=== PATIENT | male | born 1950 | race Caucasian/White ===

== ENCOUNTER → 2017-09-28 | Outpatient (CLI) | payer MEDICARE ==
[~2017-09-28] MED LIST: FUROSEMIDE INJ 10 MG/ML 4 ML VIAL ONE
--- NOTE | 2017-09-28 19:48 | Diagnostic Imaging Report ---
Renal Scan with Lasix Washout Clinical information: 67 M with hydronephrosis; history of bladder cancer 2016 Technique: Following intravenous administration of 11 mCi of Tc-99m MAG3, dynamic images of the kidneys in the posterior projection were obtained through 40 minutes. Lasix 40 mg was administered intravenously at 10 minutes post injection of the tracer. Report: Left kidney: Perfusion of the left kidney is prompt. The kidney has a normal reniform shape with very mild thinning of the renal cortex. The renal contour is smooth. Extraction of tracer from the blood pool is normal. Clearance of tracer from the renal parenchyma is prompt. The pelvicalyceal system is mildly dilated, most prominently the renal pelvis. Increased pooling of tracer is seen within the pelvicalyceal system. No net drainage of tracer from the pelvicalyceal system is seen prior to administration of Lasix. Washout of tracer from the pelvicalyceal system following administration of Lasix is rapid with a T-1/2 of 4 minutes (normal less than 15 minutes). No significant stasis of tracer is seen within the left ureter. Right kidney: Perfusion of the right kidney is prompt. The kidney has a normal reniform shape with very mild thinning of the renal cortex. The renal contour is smooth. Extraction of tracer from the blood pool is normal. Clearance of tracer from the renal parenchyma is prompt. The pelvicalyceal system is mildly dilated, most prominently the renal pelvis. Increased pooling of tracer is seen within the pelvicalyceal system. No net drainage of tracer from the pelvicalyceal system is seen prior to administration of Lasix. Washout of tracer from the pelvicalyceal system following administration of Lasix is rapid with a T-1/2 of 4 minutes (normal less than 15 minutes). No significant stasis of tracer is seen within the right ureter. Differential renal function: The left kidney contributes 50% of total renal function and the right kidney contributes 50% (normal 43-57%). Impression: 1. The function of the left kidney is generally normal. Mild hydronephrosis is present. No physiologically significant obstruction of the renal collecting system is present. 2. The function of the right kidney is generally normal. Mild hydronephrosis is present. No physiologically significant obstruction of the renal collecting system is present. 3. The differential renal function is preserved. Signed by: Dr. Kristy Petersen M.D. on 09/28/2017 7:45 PM
== END ==
LOC: NM 13:11
PROVIDERS: ATTEND Urology
DX: N13.1 Hydronephrosis with ureteral stricture, not elsewhere classified (principal); R31.0 Gross hematuria
CPT/HCPCS: 78708; A9562; J1940

== ENCOUNTER → 2017-12-02 | Day surgery (SDC) | payer MEDICARE ==
[2017-11-30 13:12] LABS: BASOPHILS % 0.4 % (0.0-1.0); EOSINOPHILS # (AUTO) 0.2 (0.0-0.4); EOSINOPHILS % 2.2 % (0.0-6.0); HEMATOCRIT 44.9 % (38.2-49.6); HEMOGLOBIN 15.1 g/dL (14.0-18.0); LYMPHOCYTES # (AUTO) 1.6 (1.0-3.2); LYMPHOCYTES % 22.9 % (18.0-39.1); MEAN CORPUSCULAR HEMOGLOBIN 31.1 pg (28-32); MEAN CORPUSCULAR HGB CONC 33.6 g/dL (31-35); MEAN CORPUSCULAR VOLUME 92.6 fL (81-99); MONOCYTES # (AUTO) 0.6 (0.2-0.8); MONOCYTES % 9.2 % (4.4-11.3); NEUTROPHILS # (AUTO) 4.4 (2.1-6.9); PLATELET COUNT 187 x10e3/uL (140-360); RED BLOOD COUNT 4.85 x10e6/uL (4.3-5.7); RED CELL DISTRIBUTION WIDTH 12.5 % (11.7-14.4)
--- NOTE | 2017-11-30 14:15 | Diagnostic Imaging Report ---
EXAMINATION: PA and lateral views of the chest. COMPARISON: None CLINICAL HISTORY: Preoperative study, ureteral cancer DISCUSSION: The lungs are well-inflated. No focal airspace consolidation, pleural effusion, or pneumothorax. Tortuosity of the thoracic aorta. Otherwise normal cardiomediastinal contour. No pulmonary edema. No acute osseous abnormality. IMPRESSION: No acute cardiopulmonary abnormalities. Signed by: Dr. Uriel Lainez M.D. on 11/30/2017 2:10 PM
[~2017-12-02] MED LIST changes: +ASPIR 8181 MG PO; +ATORVASTATIN CA20 MG PO; +CEFTRIAXONE SOD 1 GM VIAL ONE; +CO Q-10100 MG PO; +DEXAMETHASONE SOD PHOS INJ 4 MG/ML VIAL ONE; +FENTANYL CITRATE/PF 100MCG/2 ML INJ ONE; -FUROSEMIDE INJ 10 MG/ML 4 ML VIAL ONE; +GLYCOPYRROLATE INJ 1MG/ 5 ML SYR ONE; +IOPAMIDOL 300MG/ML 50ML INFUS..BTL IV ONE; +LIPITOR20 MG PO; +LISINOPRIL2.5 MG PO; +MIDAZOLAM HCL 2 MG/2 ML VIAL ONE; +ONDANSETRON HCL INJ 2 MG/ML VIAL ONE; +PROPOFOL IV EMULSION 10 MG/ML 20 ML VIAL ONE; +SEVOFLURANE INHAL SOLN 250 ML PEN BTL ONE; +VIT D3 PO
[2017-12-02 09:25] VITALS: BP 125/73
--- OUTSIDE RECORDS SUMMARY | 2017-12-27 05:29 | XMS REPORT ---
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 Allergies, Adverse Reactions, Alerts This patient has no known allergies or adverse reactions. Medications This patient has no known medications. Results Test Description Test Time Test Comments Text Results Atomic Results Result Comments CHEST 2 VIEWS 2017-11-30 14:08:00 [place] [address] Patient Name: EDWIGE AN MR #: [id number] : 1950 Age/Sex: 67/M Req #: [id number] Adm Physician: Ordered by: RANJAN REYNOLDS MD Report #: [id number] Location: OR Room/Bed: Procedure: [id number] DX/CHEST 2 VIEWS Exam Date: 11/30/17 Exam Time: 1313 REPORT STATUS: Signed EXAMINATION: PA and lateral views of the chest. COMPARISON: None CLINICAL HISTORY: Preoperative study, ureteral cancer DISCUSSION: The lungs are well-inflated. No focal airspace consolidation, pleural effusion, or pneumothorax. Tortuosity of the thoracic aorta. Otherwise normal cardiomediastinal contour. No pulmonary edema. No acute osseous abnormality. IMPRESSION: No acute cardiopulmonary abnormalities. Signed by: Dr. Sheila Cintron M.D. on 11/30/2017 2:10 PM Dictated By: SHEILA CINTRON MD 141 Transcribed By: PANKAJ on 11/30/17 141 COPY TO: RANJAN REYNOLDS MD RENAL SCAN W/LASIX 2017-09-28 19:39:00 [place] [address] Patient Name: EDWIGE AN MR #: [id number] : 1950 Age/Sex: 67/M Req #: [id number] Adm Physician: Ordered by: RANJAN REYNOLDS MD Report #: [id number] Location: [place] Room/Bed: Procedure: [id number] NM/RENAL SCAN W/LASIX Exam Date: 09/28/17 Exam Time: 1408 REPORT STATUS: Signed Renal Scan with Lasix Washout Clinical information: 67 M with hydronephrosis; history of bladder cancer 2015 Technique: Following intravenous administration of 11 mCi of Tc-99m MAG3, dynamic images of the kidneys in the posterior projection were obtained through 40 minutes. Lasix 40 mg was administered intravenously at 10 minutes post injection of the tracer. Report: Left kidney: Perfusion of the left kidney is prompt. The kidney has a normal reniform shape with very mild thinning of the renal cortex. The renal contour is smooth. Extraction of tracer from the blood pool is normal. Clearance of tracer from the renal parenchyma is prompt. The pelvicalyceal system is mildly dilated, most prominently the renal pelvis. Increased pooling of tracer is seen within the pelvicalyceal system. No net drainage of tracer from the pelvicalyceal system is seen prior to administration of Lasix. Washout of tracer from the pelvicalyceal system following administration of Lasix is rapid with a T-1/2 of 4 minutes (normal less than 15 minutes). No significant stasis of tracer is seen within the left ureter. Right kidney: Perfusion of the right kidney is prompt. The kidney has a normal reniform shape with very mild thinning of the renal cortex. The renal contour is smooth. Extraction of tracer from the blood pool is normal. Clearance of tracer from the renal parenchyma is prompt. The pel vicalyceal system is mildly dilated, most prominently the renal pelvis. Increased pooling of tracer is seen within the pelvicalyceal system. No net drainage of tracer from the pelvicalyceal system is seen prior to administration of Lasix. Washout of tracer from the pelvicalyceal system following administration of Lasix is rapid with a T-1/2 of 4 minutes (normal less than 15 minutes). No significant stasis of tracer is seen within the right ureter. Differential renal function: The left kidney contributes 50% of total renal function and the right kidney contributes 50% (normal 43- 57%). Impression: 1. The function of the left kidney is generally normal. Mild hydronephrosis is present. No physiologically significant obstruction of the renal collecting system is present. 2. The function of the right kidney is generally normal. Mild hydronephrosis is present. No physiologically significant obstruction of the renal collecting system is present. 3. The differential renal function is preserved. Signed by: Dr. Yanni Peteresn M.D. on 09/28/2017 7:45 PM Dictated By: YANNI PETERSEN MD 44 Transcribed By: PANKAJ on 09/28/171944 COPY TO: RANJAN REYNOLDS MD
--- NOTE | 2018-01-24 01:22 | Operative Report ---
DATE OF PROCEDURE: December 02, 2017 PREOPERATIVE DIAGNOSIS: Ureteral cancer. POSTOPERATIVE DIAGNOSIS: Ureteral cancer. OPERATIONS PERFORMED 1. Cystourethroscopy with bilateral ureteral catheterization and retrograde ureteropyelography. 2. Interpretation of retrograde ureteropyelography. 3. Supervision of fluoroscopy. No radiologist present. ANESTHESIA: General. COMPLICATION: None. CLINICAL SUMMARY: Mik Olguin is a 67-year-old man, who had gross hematuria, who was diagnosed as having ureteral cancer. He underwent distal ureterectomy and is brought for surveillance. He is aware of the risks of bleeding, infection, injury to adjacent structures, need for additional procedures and elected to proceed. OPERATIVE PROCEDURE IN DETAIL: Informed consent was verified. Mik Olguin was properly identified, taken to operating room, placed on the cystoscopy table in supine position. Anesthesia was uneventfully begun. The patient was then carefully and gently repositioned in dorsal lithotomy position with all pressure points well padded. His genitalia were prepared and draped in usual sterile fashion. The 22.5-Comoran cystoscope sheath with visual obturator in place was atraumatically inserted in the patient's urethra. It was guided down the unremarkable urethra past a normal sphincteric region through the prostate bed, which was significant for a bilobar prostatic hypertrophy with kissing lateral lobes and visual obstruction. We entered the patient's bladder, which exhibited grade-1 trabeculations, normally positioned left ureteral orifice was identified. The right ureter was located in a diverticular-like section at the anterolateral portion of the bladder, where we identified the ureteral orifice. An 8-Comoran catheter was used cannulate each ureter and retrograde ureteropyelographies were performed. Interpretation retrograde ureteropyelography: Contrast was instilled in retrograde fashion bilaterally. There were no tumors, no stones, no diverticula. Unobstructed drainage was observed bilaterally fluoroscopically. There were no suspicious lesions. The patient's bladder was then drained. The patient was uneventfully reversed from anesthesia and taken to recovery room in stable condition. There were no complications to procedure. He tolerated the procedure well. Explicit postop instructions were given. Will plan on returning the patient to the office in approximately 5 months to perform uroflowmetry, bladder ultrasonography, and cystoscopy. Job#: [id number] CQ
== END | disposition home or self-care (01) ==
LOC: OR 05:07
PROVIDERS: ATTEND Urology
DX: C66.9 Malignant neoplasm of unspecified ureter (principal); N40.1 Benign prostatic hyperplasia with lower urinary tract symptoms; N13.8 Other obstructive and reflux uropathy; N32.89 Other specified disorders of bladder; G47.33 Obstructive sleep apnea (adult) (pediatric); I10 Essential (primary) hypertension; E78.5 Hyperlipidemia, unspecified; F17.210 Nicotine dependence, cigarettes, uncomplicated; Z01.810 Encounter for preprocedural cardiovascular examination; Z01.812 Encounter for preprocedural laboratory examination; Z01.818 Encounter for other preprocedural examination; Z79.82 Long term (current) use of aspirin
CPT/HCPCS: 36415; 52005; 71046; 74420; 85025; 93005; C1758; J0696; J1100; J2250; J2405; J3490; Q9967

== ENCOUNTER → 2019-02-16 | Outpatient (CLI) | payer MEDICARE ==
[~2019-02-16] MED LIST changes: -CEFTRIAXONE SOD 1 GM VIAL ONE; -DEXAMETHASONE SOD PHOS INJ 4 MG/ML VIAL ONE; -FENTANYL CITRATE/PF 100MCG/2 ML INJ ONE; -GLYCOPYRROLATE INJ 1MG/ 5 ML SYR ONE; -IOPAMIDOL 300MG/ML 50ML INFUS..BTL IV ONE; -MIDAZOLAM HCL 2 MG/2 ML VIAL ONE; -ONDANSETRON HCL INJ 2 MG/ML VIAL ONE; -PROPOFOL IV EMULSION 10 MG/ML 20 ML VIAL ONE; -SEVOFLURANE INHAL SOLN 250 ML PEN BTL ONE
--- NOTE | 2019-02-16 08:27 | Diagnostic Imaging Report ---
Ultrasound of the Kidneys, 02/16/2019. Clinical History: Hydronephrosis, malignant neoplasm of right ureter. Discussion: Sonographic evaluation of the kidneys is performed. Right kidney: 12.9 cm in length, normal in size, with cortical thickness of 1.5 cm. Normal cortical echogenicity. A 2.1 x 2.0 x 2.4 cm anechoic cyst arises from the upper pole of the right kidney.. No shadowing calculus. No hydronephrosis. Left kidney: 11.9 cm in length, normal in size, with cortical thickness of 1.9 cm. Normal cortical echogenicity. No mass. No shadowing calculus. No hydronephrosis. Limited Doppler evaluation demonstrates normal color Doppler flow within bilateral renal mandi. Fluid: No perinephric fluid. Bladder: Bilateral ureteral jets are visualized.. IMPRESSION: No evidence of hydronephrosis bilaterally. Right renal cyst. Signed by: Rogelio Sage MD on 02/16/2019 8:24 AM
== END ==
LOC: US 06:33
PROVIDERS: ATTEND Urology
DX: C66.1 Malignant neoplasm of right ureter (principal); N13.30 Unspecified hydronephrosis
CPT/HCPCS: 76770

== ENCOUNTER → 2020-02-13 | Day surgery (SDC) | payer MEDICARE ==
[2020-02-11 09:52] LABS: BASOPHILS % 0.6 % (0.0-1.0); EOSINOPHILS # (AUTO) 0.2 (0.0-0.4); HEMATOCRIT 42.9 % (38.2-49.6); HEMOGLOBIN 14.1 g/dL (14.0-18.0); LYMPHOCYTES # (AUTO) 1.3 (1.0-3.2); LYMPHOCYTES % 20.3 % (18.0-39.1); MEAN CORPUSCULAR HGB CONC 32.9 g/dL (31-35); MEAN CORPUSCULAR VOLUME 91.3 fL (81-99); MONOCYTES # (AUTO) 0.4 (0.2-0.8); MONOCYTES % 6.7 % (4.4-11.3); NEUTROPHILS # (AUTO) 4.5 (2.1-6.9); NEUTROPHILS % 69.2 % (38.7-80.0); PLATELET COUNT 195 x10e3/uL (140-360)
[2020-02-11 10:19] LABS: ALANINE AMINOTRANSFERASE 18 IU/L (0-55); ALBUMIN 4.1 g/dL (3.5-5.0); ALBUMIN/GLOBULIN RATIO 1.6 (0.8-2.0); ALKALINE PHOSPHATASE 73 IU/L (40-150); BLOOD UREA NITROGEN 12 mg/dL (7-26); BUN/CREATININE RATIO 13 (6-25); CALCIUM 8.6 mg/dL (8.4-10.2); CARBON DIOXIDE 26 mmol/L (22-29); CHLORIDE 107 mmol/L (98-107); CREATININE, SERUM 0.91 mg/dL (0.72-1.25); EST GLOMERULAR FILTRATION RATE > 60 ML/MIN (60-); GLUCOSE 102 mg/dL (74-118); SODIUM 140 mmol/L (136-145)
--- NOTE | 2020-02-11 10:53 | Diagnostic Imaging Report ---
EXAMINATION: CHEST 2 VIEWS INDICATION: Pre-operative COMPARISON: Chest radiograph 11/30/2017 FINDINGS: LINES/TUBES:None LUNGS:The lungs are well-inflated. No focal consolidation or pulmonary edema. PLEURA:No pleural effusion or pneumothorax. MEDIASTINUM:The cardiomediastinal silhouette appears normal in size and shape. BONES/SOFT TISSUES:No acute osseous injury. ABDOMEN:No free air under the diaphragm. IMPRESSION: No focal pneumonia or pulmonary edema. Signed by: Mimi Cornell MD on 02/11/2020 10:50 AM
[~2020-02-13] MED LIST changes: +B&O 60MG R/S 60 MG SUPP PR ONE; +BENAZEPRIL HCL10 MG PO; +CEFTRIAXONE SOD 1 GM/NS 50 ML 50 ML IV ONE; +DEXAMETHASONE SOD PHOS INJ 4 MG/ML VIAL ONE; +FLOMAX0.4 MG PO; +IOPAMIDOL 300MG/ML 50ML INFUS..BTL IV ONE; +LIDOCAINE HCL 2% JELLY 5 ML TUBE ONE; +LIDOCAINE HCL 2% LOCAL INJ 5 ML SDV VIAL INJ ONE; +MIDAZOLAM HCL 2 MG/2 ML VIAL ONE; +ONDANSETRON HCL INJ 2MG/ML 2ML 2 MG/ML VIAL ONE; +PROPOFOL IV EMULSION 10 MG/ML 20 ML VIAL ONE; +SEVOFLURANE INHAL SOLN 250 ML PEN BTL ONE; +TRAZODONE HCL100 MG PO
[2020-02-13 10:10] VITALS: BP 115/66
--- NOTE | 2020-02-14 09:46 | Operative Report ---
DATE OF PROCEDURE: 02/13/2020 SURGEON: Perry Garza MD PREOPERATIVE DIAGNOSES: 1. Right ureteral cancer. 2. Obstructive benign prostatic hypertrophy. POSTOPERATIVE DIAGNOSES: 1. Right ureteral cancer. 2. Obstructive benign prostatic hypertrophy. OPERATIVE PROCEDURES: 1. Cystourethroscopy with bilateral ureteral catheterization and retrograde ureteropyelography. 2. Interpretation of retrograde ureteropyelography, no radiologist present. 3. Supervision of fluoroscopy, no radiologist present. 4. Right ureteroscopy (separate procedure performed to evaluate the right ureteral . 5. Radiological services with supervision and interpretation of ureteroscopy, no radiologist present. ANESTHESIA: General. CLINICAL SUMMARY: Mik Olguin is a 69-year-old old man, who is 4 years status post distal ureterectomy with ureteral re-implantation utilizing a psoas hitch. The patient was brought for surveillance. He is aware of the risks of bleeding, infection, injury to the adjacent structures. The patient also has significant BPH and had been on alpha-raoul therapy. OPERATIVE PROCEDURE IN DETAIL: Informed consent was verified. Mik Olguin was properly identified, taken to the operating room, placed on the cystoscopy table in supine position. Anesthesia was uneventfully begun. The patient was then carefully gently repositioned in dorsal lithotomy position with all pressure points well padded. His genitalia were prepared and draped in the usual fashion. The cystoscope sheath with a visual obturator in place was atraumatically inserted into the patient's urethra. It was guided down into the unremarkable distal urethra through the normal sphincteric region, through the patient's prostate bed, which exhibited bilobar prostatic hypertrophy with kissing lateral lobes. We entered the patient's bladder where there were grade 2 trabeculations, but no tumors and no stones. Psoas hitch was present. The bladder was inspected. The right ureteral orifice was identified within the psoas hitch area. The left ureteral orifice was unremarkable. The ureteral catheter was used to cannulate each ureter and retrograde ureteropyelography was performed. A semi-rigid ureteroscope was then inserted into the patient's urethra. It was guided into the distal ureter. The ureterovesical anastomosis was unremarkable without any obstruction. There were no tumors. The distal ureter exhibited no obstruction and no tumors. A guidewire was left in place. Then, the flexible ureteroscope was brought up to the level of the patient's kidney. Panendoscopy revealed no suspicious mucosal lesions, no tumors. Careful re-examination of the ureter again revealed no tumors and no obstruction. Interpretation of retrograde ureteropyelography: Contrast was instilled in retrograde fashion bilaterally. The left side was unremarkable. There were no tumors, no stones, no suspicious lesions. Unobstructed drainage was observed fluoroscopically. The right side exhibited some chronic hydroureteronephrosis with calyceal blunting. We inspected the patient with a refluxing anastomosis. Nevertheless, unobstructed drainage was observed fluoroscopically. The bladder was drained and contrast was injected through the cystoscope to perform cystography. Interpretation of cystography: The bladder was generally smooth. The trabeculations were noted. There was a psoas hitch, distortion of the bladder. I am unable to transportation driver vesicoureteric reflux due to the fact that we introduced contrast into the right-sided collecting system already. The patient's bladder was drained and cystoscope was withdrawn. Belladonna and opium suppository was placed revealing a 40-g prostate that was smooth and functional without any nodules. The patient was then uneventfully reversed from anesthesia and taken to the recovery room in stable condition. There were no complications of the procedure. The patient tolerated the procedure well. Exclusive postoperative instructions were given. We will plan to follow the patient up in March for uroflow and bladder ultrasonography. We will plan to follow the patient at the 4-1/2-year cheryl following his ureterectomy for surveillance cystoscopy in the office. Perry Garza MD [place]/MODL /[id number] cc: Dr. Josh Peoples
== END | disposition home or self-care (01) ==
LOC: OR 07:01
PROVIDERS: ATTEND Urology
DX: C66.1 Malignant neoplasm of right ureter (principal); N40.1 Benign prostatic hyperplasia with lower urinary tract symptoms; R39.14 Feeling of incomplete bladder emptying; N13.30 Unspecified hydronephrosis; R31.0 Gross hematuria; N39.0 Urinary tract infection, site not specified; N32.3 Diverticulum of bladder; N28.1 Cyst of kidney, acquired; I25.10 Atherosclerotic heart disease of native coronary artery without angina pectoris; Z95.5 Presence of coronary angioplasty implant and graft; E78.00 Pure hypercholesterolemia, unspecified; N13.8 Other obstructive and reflux uropathy; Z01.810 Encounter for preprocedural cardiovascular examination; Z01.812 Encounter for preprocedural laboratory examination; Z01.818 Encounter for other preprocedural examination; Z20.828 Contact with and (suspected) exposure to other viral communicable diseases
CPT/HCPCS: 36415; 52351; 71046; 74420; 80053; 85025; 93005; C1758; C1769; J0696; J1100; J2001 ×2; J2250; J2405; J2704; Q9967; U0002